=== PATIENT | female | born 1960 ===

== ENCOUNTER 2022-09-08 07:03 | Day surgery (SDC) | payer OTHER ==
[~2022-09-08] VITALS: Ht 167.6 cm; Wt 74.8 kg
[~2022-09-08 07:03] MED LIST: SYNTHROID50 MCG PO
[2022-09-08] MEDS ORDERED: MORGIDOX100 MG PO (11:55)
[2022-09-08] MEDS ORDERED: NAPR500T14 PO (11:55)
== END 2022-09-08 13:35 | disposition home or self-care (01) ==
LOC: CIR.AMB 07:03
PROVIDERS: ATTEND Obstetrics & Gynecology
DX: N92.0 Excessive and frequent menstruation with regular cycle (principal); N84.0 Polyp of corpus uteri; D25.0 Submucous leiomyoma of uterus; I10 Essential (primary) hypertension; E03.9 Hypothyroidism, unspecified; E78.5 Hyperlipidemia, unspecified; Z20.822 Contact with and (suspected) exposure to COVID-19